=== PATIENT | female | born 1995 | race Caucasian/White ===

== ENCOUNTER 2016-10-15 18:49 | Emergency (ER) | payer OTHER ==
[~2016-10-15] VITALS: Ht 162.6 cm; Wt 70.0 kg
[~2016-10-15 18:49] MED LIST: DOCU-41 PO; HYDR-4003 PO; IBUP-1827 PO
[2016-10-15 18:54] VITALS: BP 104/59; PULSE 87; RESP 18; O2SAT 97
--- NOTE | 2016-10-15 20:30 | ED.REPORT ---
HPI-Abd Pain F Under 40 Date of Service October 15, 2016 ED Provider: Dr. Malik Glass MD A 21 year old female with a history of ovarian cysts presents to the ED with abdominal pain that began approx 2 weeks ago. Associated symptoms include recent fever, nausea, vomiting and mild vaginal spotting. Patient took 6 at home tests with 2 positive and 4 negative. She was sent from Urgent Care for further evaluation. Patient denies any chance of STI's. She denies any diarrhea. Nursing Notes Stated Complaint: ABD CRAMPING, SPOTTING, FEVER//SENT BY [facility] Chief Complaint: Female Abdominal Pain Nursing Notes Reviewed: Yes Allergies: Coded Allergies: No Known Allergies (Verified Allergy, Unknown, 01/19/16) Scheduled Docusate Sodium (Colace) 100 Mg Capsule 100 MG PO BID Scheduled PRN Hydrocodone-Acetaminophen 5-325 mg (Hydrocodone-Acetaminophen 5-325 mg) 1 Each Tablet 1-2 TABLET PO Q4H PRN PRN For Pain Ibuprofen (Ibuprofen) 600 Mg Tablet 600 MG PO Q6H PRN PRN For Mild Pain General Time Seen by MD: 20:30 Chief Complaint Abdominal pain Hx Obtained From: Patient Arrived By: Walk-in Sudden in Onset?: No Onset Occurred: More than a week ago... (2 weeks) Symptom Duration: Since onset Progression since Onset: Unchanged Location: : Diffuse Quality: Painful Radiation: : Does not radiate Severity: Current: Mild Severity: Maximum: Mild Pertinent Negative: Pt denies other symptoms Recent Healthcare: No recent doctor visit, No recent hospitalization Past Medical History Past Medical History Notes: Past Medical History Healthy Past Surgical History None Smoking History Former Smoker Social History Alcohol Use: Denies alcohol use Other Social History: Good social support, Local resident Occupation lives by self, work at [employer] supported living Ambulatory Status Independent Review of Systems Constitutional: Reports: Fever GI: Reports: Abdominal pain, Nausea, Vomiting, Denies: Diarrhea Female: Reports: (Possible), Vaginal bleeding - abnl (spotting) Complete sys rev & neg: except as marked. Physical Exam Initial Vital Signs Vital Signs (First) Date Time Temp Pulse Resp B/P Pulse Ox O2 Delivery O2 Flow Rate FiO2 10/15/16 18:54 36.8 87 18 104/59 97 Room Air Initial VS: Reviewed Head / Eyes: Atraumatic, Normocephalic, PERRL Neck: Supple, Non-tender, Full range of motion Extremities: Vascular intact, Neuro intact, No swelling, No tenderness Skin: Warm, Dry, No cyanosis Neurologic: Alert, Oriented, Nonfocal Psychiatric: Mood/affect normal, Behavior normal, Normal thought content General/Constitutional: Awake, Alert, No acute distress Respiratory / Chest: Atraumatic, Breath sounds NL, Breath sounds = bilat, No respiratory distress Cardiovascular: Heart rate NL, Regular rhythm, Heart sounds NL Abdomen: Atraumatic, Soft, BS normoactive, No palpable mass, No pulsatile mass ABDOMEN: bilateral pelvic pain Back: Atraumatic, Inspection NL Interpretation & Diagnostics Lab Results Interpretation Result Diagram: 10/15/16205410/15/162054 Test 10/15/16 19:48 10/15/16 20:09 10/15/16 20:44 10/15/16 20:55 Human Chorionic Gonadotropin, Qual Negative (Negative) Hold Urine Received (Received) Urine Color Straw (YELLOW) Urine Appearance Clear (CLEAR,HAZY) Urine pH 6.5 (5.0-8.0) Urine Specific [place] 1.007 (1.003-1.035) Urine Protein Negativemg/dL (NEG,TRACE) Urine Glucose (UA) Negativemg/dL (NEGATIVE) Urine Ketones Negativemg/dL (NEGATIVE) Urine Occult Blood Negative (NEGATIVE) Urine Nitrite Negative (NEGATIVE) Urine Bilirubin Negative (NEGATIVE) Urine Urobilinogen Normalmg/dL (NORMAL) Urine Leukocyte Esterase Negative (NEGATIVE) Urine RBC 0-2/hpf (0-2) Urine WBC 0-5/hpf (0-5) Urine Epithelial Cells Few/hpf (NONE-MOD) Urine Crystals None seen (NONE SEEN) Urine Bacteria None/hpf (NONE-FEW) Urine Hyaline Casts None/lpf (NONE) Urine Granular Casts None seen (NONE SEEN) Urine Waxy Casts None seen (NONE SEEN) Urine Red Blood Cell Casts None seen (NONE SEEN) Urine White Blood Cell Casts None seen (NONE SEEN) Urine Mucus None seen (None Seen) Urine Trichomonas None seen (NONE SEEN) Urine Yeast None (NONE SEEN) Urine Culture Reflexed Not indicated White Blood Count 8.2th/mm3 (3.8-10.1) Red Blood Count 4.49mil/mm3 (3.90-5.20) Hemoglobin 12.6g/dL (12.0-15.6) Hematocrit 38.0% (35.0-46.0) Mean Corpuscular Volume 84.6fL (81-100) Mean Corpuscular Hemoglobin 28.1pg (27.0-35.0) Mean Corpuscular Hemoglobin Concent 33.2% (32.0-37.0) Red Cell Distribution Width 13.7% (12.3-15.4) Platelet Count 244bil/L (150-400) Neutrophils (%) (Auto) 60.2% (40-74) Lymphocytes (%) (Auto) 31.6% (14-46) Monocytes (%) (Auto) 6.8% (4-12) Eosinophils (%) (Auto) 0.9% (0-5) Basophils (%) (Auto) 0.4% (0-3) Sodium Level 138mEq/L (134-144) Potassium Level 3.7mEq/L (3.5-5.2) Chloride Level 101mEq/L (97-108) Carbon Dioxide Level 23mmol/L (18-29) Blood Urea Nitrogen 7mg/dL (6-20) Creatinine 0.70mg/dL (0.57-1.00) Estimat Glomerular Filtration Rate 151mL/min (>59) Glucose Level 101mg/dL (60-99) Calcium Level 9.9mg/dL (8.5-10.1) Total Bilirubin 0.4mg/dL (0.0-1.2) Aspartate Amino Transf (AST/SGOT) 15U/L (0-50) Alanine Aminotransferase (ALT/SGPT) 11U/L (0-32) Alkaline Phosphatase 57U/L (25-150) Total Protein 7.5g/dL (6.4-8.4) Albumin 4.2g/dL (3.4-5.0) Point of Care Testing: Preg test neg - urine Re-Eval/Medical Decision Med Decision/Clinical Course Qualitative test was negative. I recommended pelvic ultrasound. Justina refuses. She states she basically wanted nauseous . She did assure me that she will return if she has any problems. I warned her about the risks of ovarian torsion and hemorrhagic cyst. She agrees to follow-up as well. Overall her belly was soft minimal minimal tenderness without she has acute surgical pathology but again I still strongly recommend ultrasound. Re-Evaluation/Progress : Time of Eval: 20:51 Re-Evaluation/Progress Note: Patient is informed of her test and is requesting discharge at this time. She is given strict return precautions. Patient understands and agrees to the treatment plan. Counseled Regarding: Diagnosis, Lab results, Need for follow-up, When/why to return to ED Discharge & Departure Primary Impression: Vaginal bleeding Additional Impression: Pelvic pain Disposition: Home Discharge Condition All VS Reviewed: Yes Condition: Improved Patient Instructions: Pelvic Pain in Women (ED) Additional Instructions: Thank you for trusting us with your care this evening. Your test was negative and your urine was tested for various infections. Schedule a follow appointment with your primary care physician in the next 2-3 days for a recheck. Please take Motrin as directed for pain. Please return to the emergency department for an ultrasound if you develop any new or worsening conditions including any dizziness, lightheadedness, worsening fever, chills, nausea, vomiting, abdominal pain or vaginal bleeding. Referrals: Gray Castaneda DO (PCP) Cara Attestation Portions of this note were transcribed by Bette Rivera. I, Dr. Glass personally performed the history, physical exam and medical decision-making; I reviewed and confirmed the accuracy of the information in the transcribed note. Signed by: Cara Sloan, 10/15/162055. copies to: Gray Castaneda Todd P DO October 15, 2016 20:30 BETTE RIVERA October 15, 2016 20:38
[2016-10-15 20:59] VITALS: BP 101/72; PULSE 67; RESP 16; O2SAT 97
[2016-10-15 21:01] LABS: BASOPHILS % (AUTO) 0.4 % (0-3); EOSINOPHILS % (AUTO) 0.9 % (0-5); MONOCYTES % (AUTO) 6.8 % (4-12); Mean Corpuscular Hemoglobin 28.1 pg (27.0-35.0); Mean Corpuscular Volume 84.6 fL (81-100); NEUTROPHILS % (AUTO) 60.2 % (40-74); Platelet Count 244 bil/L (150-400)
[2016-10-15 21:20] LABS: APPEARANCE,URINE CLEAR (CLEAR,HAZY); COLOR,URINE STRAW (YELLOW); OCCULT BLOOD,URINE NEGATIVE (NEGATIVE); PH,URINE 6.5 (5.0-8.0); UROBILINOGEN,URINE NORMAL (NORMAL)
== END 2016-10-15 21:00 | disposition home or self-care (01) ==
LOC: SED 18:49
DX: N93.9 Abnormal uterine and vaginal bleeding, unspecified (principal); R10.2 Pelvic and perineal pain; R50.9 Fever, unspecified; R11.2 Nausea with vomiting, unspecified; Z87.891 Personal history of nicotine dependence

== ENCOUNTER 2016-10-24 19:50 | Emergency (ER) | payer OTHER ==
[~2016-10-24] VITALS: Ht 162.6 cm; Wt 69.0 kg
[2016-10-24 20:11] VITALS: BP 111/79; PULSE 60; RESP 16; O2SAT 100
[2016-10-24 21:24] LABS: BASOPHILS % (AUTO) 0.5 % (0-3); MONOCYTES % (AUTO) 6.4 % (4-12); Mean Corpuscular Hemoglobin 28.5 pg (27.0-35.0); Mean Corpuscular Volume 84.3 fL (81-100); NEUTROPHILS % (AUTO) 55.3 % (40-74); Platelet Count 227 bil/L (150-400)
[2016-10-24 22:11] LABS: APPEARANCE,URINE CLEAR (CLEAR,HAZY); COLOR,URINE STRAW (YELLOW); OCCULT BLOOD,URINE NEGATIVE (NEGATIVE); PH,URINE 6.5 (5.0-8.0); UROBILINOGEN,URINE NORMAL (NORMAL)
--- NOTE | 2016-10-24 23:31 | ED.REPORT ---
HPI-Abd Pain F Under 40 Date of Service October 24, 2016 ED Provider: Jarocho Mendoza MD The pt is a 21 y/o female w/ a hx of an ovarian cysts presenting to the ED complaining of abd pain onset last week. The pain increased yesterday, described as sharp, primarily in her lower abd, radiates to her back w/ a severity of 8/10. Sitting in certain positions or laying down makes it worse. She is able to eat but feels nauseas afterward. She was seen in the ED last week for the same symptoms. Denies vomiting, fever, dysuria. She took Excedrin yesterday for the pain. Nursing Notes Stated Complaint: ABDOMINAL PAIN Chief Complaint: Female Abdominal Pain Nursing Notes Reviewed: Yes ([employer] not reconciled) Allergies: Coded Allergies: No Known Allergies (Verified Allergy, Unknown, 01/19/16) Scheduled Docusate Sodium (Colace) 100 Mg Capsule 100 MG PO BID Scheduled PRN Hydrocodone-Acetaminophen 5-325 mg (Hydrocodone-Acetaminophen 5-325 mg) 1 Each Tablet 1-2 TABLET PO Q4H PRN PRN For Pain Hydrocodone-Acetaminophen 5-325 mg (Hydrocodone-Acetaminophen 5-325 mg) 1 Each Tablet 1-2 TABLET PO Q4H PRN PRN For Pain Ibuprofen (Ibuprofen) 600 Mg Tablet 600 MG PO Q6H PRN PRN For Mild Pain Prochlorperazine Maleate (Prochlorperazine) 10 Mg Tablet 10 MG PO Q4H PRN PRN For Nausea/Vomiting General Time Seen by MD: 23:19 Chief Complaint Abdominal pain Hx Obtained From: Patient Arrived By: Walk-in Sudden in Onset?: Yes Onset Occurred: 1 week ago Symptom Duration: Since onset Recent Healthcare: No recent hospitalization, Recent doctor visit Similar Sx Previous: Yes Past Medical History Past Medical History Notes: Seen in ED 1 week ago w/pain, vag spotting with concern for pregancny - preg test (serum) negative Past Medical History Healthy Past Surgical History None Smoking History Former Smoker Social History Alcohol Use: Denies alcohol use Other Social History: Good social support, Local resident Occupation lives by self, work at [employer] supported living Ambulatory Status Independent Review of Systems Constitutional: Denies: Fever GI: Reports: Abdominal pain, Nausea, Denies: Vomiting Female: Denies: Dysuria Complete sys rev & neg: except as marked. Physical Exam Initial Vital Signs Vital Signs (First) Date Time Temp Pulse Resp B/P Pulse Ox O2 Delivery O2 Flow Rate FiO2 10/24/16 20:11 36.5 60 16 111/79 100 Room Air Initial VS: Reviewed Head / Eyes: Atraumatic, Normocephalic, PERRL ENT: Mucous membranes moist, Conjunctiva normal, No scleral icterus Neck: Supple, Non-tender, Full range of motion Lymphatic: No lymphadenopathy Extremities: Vascular intact, Neuro intact, No swelling, No tenderness Skin: Warm, Dry, No cyanosis Neurologic: Alert, Oriented, Nonfocal Psychiatric: Mood/affect normal, Behavior normal, Normal thought content General/Constitutional: Awake, Alert, No acute distress, Well appearing Respiratory / Chest: Breath sounds NL, Breath sounds = bilat, No respiratory distress, No rales, No rhonchi, No wheezing Cardiovascular: Heart rate NL, Regular rhythm, Heart sounds NL, Peripheral circulation NL Abdomen: Soft, No guarding, No rebound Trace tenderness in RUQ and RLQ Back: Atraumatic, Full range of motion Interpretation & Diagnostics US abdomen Impression: Incompletely assessed incidental approximately 5.3 x 5.1 x 4.9 cm unilocular right ovarian cyst. Small amount of fluid noted in the R adnexa adjacent to the cyst. Pancreas not optimally seen. Otherwise, morphologically unremarkable abdominal ultrasound. This report was transmitted to the emergency room at 10/25/2016 - 12:16:55 AM PDT Lab Results Interpretation Result Diagram: 10/24/16211610/24/[id number] Test 10/24/16 21:17 10/24/16 22:00 White Blood Count 7.9th/mm3 (3.8-10.1) Red Blood Count 4.71mil/mm3 (3.90-5.20) Hemoglobin 13.4g/dL (12.0-15.6) Hematocrit 39.7% (35.0-46.0) Mean Corpuscular Volume 84.3fL (81-100) Mean Corpuscular Hemoglobin 28.5pg (27.0-35.0) Mean Corpuscular Hemoglobin Concent 33.8% (32.0-37.0) Red Cell Distribution Width 13.6% (12.3-15.4) Platelet Count 227bil/L (150-400) Neutrophils (%) (Auto) 55.3% (40-74) Lymphocytes (%) (Auto) 36.7% (14-46) Monocytes (%) (Auto) 6.4% (4-12) Eosinophils (%) (Auto) 1.0% (0-5) Basophils (%) (Auto) 0.5% (0-3) Sodium Level 138mEq/L (134-144) Potassium Level 3.9mEq/L (3.5-5.2) Chloride Level 102mEq/L (97-108) Carbon Dioxide Level 22mmol/L (18-29) Blood Urea Nitrogen 10mg/dL (6-20) Creatinine 0.71mg/dL (0.57-1.00) Estimat Glomerular Filtration Rate 149mL/min (>59) Glucose Level 97mg/dL (60-99) Calcium Level 9.7mg/dL (8.5-10.1) Magnesium Level 2.0mg/dL (1.6-2.6) Total Bilirubin 0.4mg/dL (0.0-1.2) Aspartate Amino Transf (AST/SGOT) 14U/L (0-50) Alanine Aminotransferase (ALT/SGPT) 8U/L (0-32) Alkaline Phosphatase 60U/L (25-150) Total Protein 7.1g/dL (6.4-8.4) Albumin 4.3g/dL (3.4-5.0) Lipase 25U/L (13-60) Hold Quiros Top Tube Received (Received) Urine Color Straw (YELLOW) Urine Appearance Clear (CLEAR,HAZY) Urine pH 6.5 (5.0-8.0) Urine Specific [place] 1.008 (1.003-1.035) Urine Protein Negativemg/dL (NEG,TRACE) Urine Glucose (UA) Negativemg/dL (NEGATIVE) Urine Ketones Negativemg/dL (NEGATIVE) Urine Occult Blood Negative (NEGATIVE) Urine Nitrite Negative (NEGATIVE) Urine Bilirubin Negative (NEGATIVE) Urine Urobilinogen Normalmg/dL (NORMAL) Urine Leukocyte Esterase Negative (NEGATIVE) Urine RBC 0-2/hpf (0-2) Urine WBC 0-5/hpf (0-5) Urine Epithelial Cells Few/hpf (NONE-MOD) Urine Crystals None seen (NONE SEEN) Urine Bacteria Few/hpf (NONE-FEW) Urine Hyaline Casts None/lpf (NONE) Urine Granular Casts None seen (NONE SEEN) Urine Waxy Casts None seen (NONE SEEN) Urine Red Blood Cell Casts None seen (NONE SEEN) Urine White Blood Cell Casts None seen (NONE SEEN) Urine Mucus None seen (None Seen) Urine Trichomonas None seen (NONE SEEN) Urine Yeast None (NONE SEEN) Urinalysis Comment None Urine Culture Reflexed Not indicated Lab Results Interpretation: CBC normal CMP normal Repeat negative Re-Eval/Medical Decision Med Decision/Clinical Course This is a 21-year-old female who returns with ongoing right-sided abdominal pain. She was seen in the ED recently for pain, also had vaginal spotting, per was negative. She was offered an ultrasound at that time but declined and she had children at home to care for, but was advised to return if symptoms did not resolve, or if they worsen. She reports pain so she got a little bit worse-the vaginal spotting resolved, and so she has come back. Denies fevers or chills. She reports the pain is worse than she has had with the previous ovarian cyst. She denies fevers chills nausea or vomiting. On exam she is trace tenderness in both right upper quadrant and right lower quadrant-but without guarding, rebound, or vanessa peritonitis. Blood work was repeated and is normal. remains negative. An ultrasound was obtained and reveals a large 5 cm right ovarian cyst without evidence of torsion. Breast her abdomen was normal. She is being discharged in hydrocodone and ibuprofen. She did receive a dose of Dilaudid and ondansetron and had a fair amount of nausea following this, so she is receiving prochlorperazine for nausea management at home on a when necessary basis. Routine and return precautions reviewed. Patient's discharged in stable condition Source of Hx: Old records Re-Evaluation/Progress : Time of Eval: 00:30 Re-Evaluation/Progress Note: Rechecked pt. Pt recently vomited and is feeling "shaky". She does not want any other medicine. Discussed dx of ovarian cyst. Informed pt of plan fortreatment. Pt understands and agrees with plan for treatment. F/U instructions and RTER warnings given. All questions addressed. Differential Diagnosis: Positive: Abscess, Ovarian cyst, Negative: Acute abdominal pain, Bowel obstruction, Ectopic , Esophageal rupture, Gun shot wound abdomen, Intrauterine , Ovarian torsion, Trauma, abdominal Counseled Regarding: Diagnosis, Lab results, Need for follow-up, When/why to return to ED Discharge & Departure Primary Impression: Ovarian cyst Laterality: right Qualified Code: N83.201 - Unspecified ovarian cyst, right side Disposition: Home Discharge Condition All VS Reviewed: Yes Condition: Stable Additional Instructions: 1. Your blood tests today were normal. 2. Ultrasound reveals a sizable 5 cm right ovarian cyst. He is usually resolve with time, and a repeat ultrasound is recommended in approximately 6 weeks. Follow up with your primary doctor to facilitate reevaluation. 3. Take ibuprofen 400-800 mg 3 times a day for pain. 4. If needed for more severe pain take hydrocodone/APAP 5/325 1-2 tabs up to every 4-6 hours. Note: This medication contains narcotic and causes drowsiness , and does have a potential cause some nausea. No driving for at least 4-6 hours after taking. 5. You can take the antinausea medicine prochlorperazine 10 mg up to every 4 hours. Note you can take this 10 minutes prior to taking a pain medicine. This medicine can cause some drowsiness as well. 6. Return if new or worsening symptoms occur. Referrals: Gray Castaneda DO (PCP) Scribe Attestation Portions of this note were transcribed by Chad Martinez. I, Dr. Mendoza personally performed the history, physical exam and medical decision-making; I reviewed and confirmed the accuracy of the information in the transcribed note. Signed by : Cara Llamas, 10/24/16 and 0012. copies to: Gray Castaneda Matthew F MD October 24, 2016 23:31 Chad Martinez October 25, 2016 00:14
[2016-10-24] MEDS ORDERED: HYDROmorphone 1 mg/mL Inj IM ONE (23:40)
[2016-10-24] MEDS ORDERED: Ondansetron 8 mg ODT Tablet PO ONE (23:40)
[2016-10-25 00:34] VITALS: BP 102/60; PULSE 67; RESP 16; O2SAT 97
[2016-10-25] MEDS ORDERED: _HYDROcodone/APAP 5-325 mg Tablet PO PRN (00:35)
[2016-10-25] MEDS ORDERED: _Ondansetron ODT 4 mg Tablet PO PRN (00:35)
[2016-10-25] MEDS ORDERED: HYDR-4003 PO (00:42)
[2016-10-25] MEDS ORDERED: PROC10TA PO (00:42)
[2016-10-25 01:24] VITALS: BP 124/59; PULSE 66; RESP 26; O2SAT 95
--- NOTE | 2016-10-25 10:32 | DRSVH ---
PROCEDURE: US ABDOMEN INDICATIONS: R abd pain (upper and lower tenderness) TECHNIQUE: Real-time scanning was performed of the abdominal and retroperitoneal organs, with image documentatio n. COMPARISON: None. FINDINGS: Liver length: 14.75 cm Gallbladder Wall Thickness: 3.10 mm CHD: Not visualized CBD: 3.30 mm Spleen length: 9.45 cm Right kidney length: 10.81 cm Left kidney length: 9.82 cm Aorta(Proximal): 2.1 Aorta(Mid): 1.64 cm Aorta(Distal): 1.52 cm RCIA: 1.05 cm LCIA: 1.12 cm Liver: Liver is normal in size and homogeneous in echotexture. Gallbladder: Gallbladder is unremarkable Biliary ducts: Intrahepatic bile ducts are non-dilated. Extrahepatic bile duct caliber is normal. Normal is 6-7 mm or less in diameter, or 10 mm or less post-cholecystectomy. Pancreas: Visualized portions of the pancreas are sonographically normal. Spleen: Spleen is normal in size and homogeneous in echotexture. Kidneys: Kidneys are normal in size and echotexture. No hydronephrosis or nephrolithiasis. No marianna d masses. Aorta: Visualized aorta is normal in caliber at less than 3 cm. Iliacs: Proximal common iliac arteries are normal in caliber at less than 2.5 cm. IVC: Intrahepatic inferior vena cava is patent. Miscellaneous: No free abdominal fluid. Right ovarian hypoechogenicity is present measuring 53 x 51 x 49 mm. IMPRESSION: 1. Right ovarian cyst is noted measuring 53 x 51 x 49 mm. Dictated by: Raegan Barnes M.D. on 10/25/2016 at 10:29 Approved by: Raegan Barnes M.D. on 10/25/2016 at 10:31
== END 2016-10-25 01:27 | disposition home or self-care (01) ==
LOC: SED 19:50
DX: N83.201 Unspecified ovarian cyst, right side (principal); Z87.891 Personal history of nicotine dependence; Z87.42 Personal history of other diseases of the female genital tract
CPT/HCPCS: 36415; 76700; 80053; 81000; 81025; 83690; 83735; 85025; 96372; 99285; J1170